=== PATIENT | female | born 1945 | race Caucasian/White ===

== ENCOUNTER 2018-04-07 20:15 | Emergency (ER) | payer MEDICARE, BC ==
[2018-04-07 21:14] LABS: CHLORIDE,CL 102 mmol/L (101-111); SODIUM,NA 136 mmol/L (135-145)
--- NOTE | 2018-04-07 22:01 | EDM.PDOC ---
ED HPI GENERAL MEDICAL PROBLEM - General Chief Complaint: Trauma Stated Complaint: fell 04/07/18 CUTS TO [id number] Time Seen by Provider: 04/07/18 21:50 Source of Information: Reports: Patient History Limitations: Reports: No Limitations - History of Present Illness INITIAL COMMENTS - FREE TEXT/NARRATIVE: fall going up steps and fell landing on forehead and knees. Arrival per family. C/o pain mid forehead and bilateral knees . Denies loss of consciousness. No neck or back pain. Ambulatory after fall. - Related Data Allergies Allergy/AdvReac Type Severity Reaction Status Date / Time beef derived (bovine) Allergy Change Verified 04/07/18 20:39 Mental Status chocolate flavor Allergy Change Verified 04/07/18 20:39 Mental Status Dairy Products Allergy Change Verified 04/07/18 20:39 Mental Status ibuprofen [From Advil] Allergy Headache Verified 04/07/18 20:39 peanut Allergy Headache Verified 04/07/18 20:39 wheat Allergy Change Verified 04/07/18 20:39 Mental Status petroleum ether Allergy Headache Uncoded 04/07/18 20:39 [id number] Allergy Headache Uncoded 04/07/18 20:39 Home Meds: Home Meds Acetaminophen 1 - 2 tab PO Q4HR PRN 12/31/15 [History] Apixaban [Eliquis] 5 mg PO BID 12/31/15 [History] Folic Acid 1 tab PO DAILY 12/31/15 [History] Furosemide 40 mg PO DAILY 12/31/15 [History] Potassium Chloride 20 meq PO BID 12/31/15 [History] atorvaSTATin [Lipitor] 20 mg PO BEDTIME 12/31/15 [History] Eyes Alive 2 tab PO DAILY 10/09/16 [History] Metoprolol Succinate [Toprol XL] 1 tab PO BID 10/09/16 [History] Past Medical History HEENT History: Reports: Cataract Cardiovascular History: Reports: Afib, Heart Valve Replacement Other Cardiovascular History: Had atrial fibrillation post valve surgery with cardioversion Gastrointestinal History: Reports: None Musculoskeletal History: Reports: None Endocrine/Metabolic History: Reports: Diabetes, Type I - Infectious Disease History Infectious Disease History: Reports: Chicken Pox, Measles, Mumps, Pertussis ( Whooping Cough), Scarlet Fever, Shingles - Past Surgical History Musculoskeletal Surgical History: Reports: Knee Replacement Social & Family History - Family History HEENT: Reports: None Cardiac: Reports: Heart Failure Other Respiratory Family Hisory: emphysema - Caffeine Use Caffeine Use: Reports: Coffee Review of Systems - Review of Systems Review Of Systems: ROS reveals no pertinent complaints other than HPI. ED EXAM, GENERAL - Physical Exam Exam: See Below Exam Limited By: No Limitations General Appearance: Alert, Anxious, Mild Distress Eye Exam: Bilateral Eye: EOMI, PERRL Ears: Normal External Exam, Normal TMs Nose: Other (5mm horizontal superficial laceration nose bridge, no active bleeding). No: Nasal Tenderness Throat/Mouth: Normal Inspection Head: Other (3cm diameter superficial abrasion mid forehead no active bleeding slight tenderness and swelling. ) Neck: Normal Inspection, Full Range of Motion. No: Limited Range of Motion, Tender Lateral, Tender Midline Respiratory/Chest: No Respiratory Distress, Lungs Clear, Normal Breath Sounds Cardiovascular: Normal Peripheral Pulses, Regular Rate, Rhythm GI/Abdominal: Soft, Non-Tender Back Exam: Normal Inspection, Full Range of Motion. No: Paraspinal Tenderness, Vertebral Tenderness Extremities: Limited Range of Motion (extension), Other (to palpation no bruising. skin intact). No: Joint Swelling Neurological: Alert, Oriented, CN II-XII Intact, Normal Cognition, No Motor/ Sensory Deficits, Other (GSC 15) Psychiatric: Normal Affect, Normal Mood Skin Exam: Warm, Wound/Incision (forehead abrasion and laceration to nasal bridge.) Course - Orders/Labs/Meds Labs: Laboratory Tests 04/07/18 04/07/18 04/07/18 Range/Units 20:38 20:38 20:38 WBC 7.8 (5.0-10.0) 10^3/uL RBC 4.18 L (4.2-5.4) 10^6/uL Hgb 12.5 D (12.0-16.0) g/dL Hct 38.4 (37.0-47.0) % MCV 91.9 (80-100) fL MCH 29.9 (27.0-34.0) pg MCHC 32.6 L (33.0-35.0) g/dL Plt Count 154 (150-450) 10^3/uL Neut % (Auto) 55.1 (42.2-75.2) % Lymph % (Auto) 32.6 (20.5-50.1) % [place] % (Auto) 9.2 H (2-8) % Eos % (Auto) 2.6 (1.0-3.0) % Baso % (Auto) 0.5 (0.0-1.0) % PT 10.4 (9.0-12.0) SEC INR 1.0 (0.9-1.2) Sodium 136 (135-145) mmol/L Potassium 4.1 (3.6-5.0) mmol/L Chloride 102 (101-111) mmol/L Carbon Dioxide 27.0 (21.0-31.0) mmol/L Anion Gap 11.1 BUN 20 H (7-18) mg/dL Creatinine 1.2 (0.6-1.3) mg/dL Est Cr Clr Drug Dosing TNP Estimated GFR (MDRD) 44 BUN/Creatinine Ratio 16.66 Glucose 119 H (74-105) mg/dL Calcium 9.3 (8.4-10.2) mg/dl Total Bilirubin 0.9 (0.2-1.0) mg/dL AST 25 (10-42) IU/L ALT 18 (10-60) IU/L Alkaline Phosphatase 61 (42-121) IU/L Total Protein 7.4 (6.7-8.2) g/dl Albumin 3.9 (3.2-5.5) g/dl Globulin 3.5 Albumin/Globulin Ratio 1.11 Meds: Medications Discontinued Medications Generic Name Dose Route Start Last Admin Trade Name Freq PRN Reason Stop Dose Admin Acetaminophen 650 mg 04/07/18 22:10 Tylenol PO 04/07/18 22:11 NOW ONE - Radiology Interpretation Free Text/Narrative:: bilateral knee xray negative. head and cervical CT negative - Re-Assessments/Exams Free Text/Narrative Re-Assessment/Exam: 04/09/18 04:14 Neuro unchanged GCS 15 at discharge. Discharge with head injury instructions. Departure - Departure Time of Disposition: 21:50 Disposition: Home, Self-Care 01 Condition: Good Clinical Impression: Fall at home Qualifiers: Encounter type: initial encounter Qualified Code(s): W19.XXXA - Unspecified fall, initial encounter Contusion of face Qualifiers: Encounter type: initial encounter Qualified Code(s): S00.83XA - Contusion of other part of head, initial encounter Forehead contusion Qualifiers: Encounter type: initial encounter Qualified Code(s): S00.83XA - Contusion of other part of head, initial encounter Contusion of nose Qualifiers: Encounter type: initial encounter Qualified Code(s): S00.33XA - Contusion of nose, initial encounter Laceration of nose without complication Qualifiers: Encounter type: initial encounter Qualified Code(s): S01.21XA - Laceration without foreign body of nose, initial encounter - Discharge Information Instructions: Contusion, [id number], Head Injury, Adult, [id number] Referrals: Phyllis Chavez MD [Primary Care Provider] - Forms: ED Department Discharge Additional Instructions: head injury instructions tylenol for discomfort every 4 hours as needed antibiotic ointment to forehead laceration twice daily ice pack to forehead check on tetnus status on Tuesday Urgent follow up if any change in condition, weakness, confusion, abnormal behavior
[2018-04-07] MEDS ORDERED: Acetaminophen 325 MG Tab PO ONE (22:10)
== END 2018-04-07 22:17 | disposition home or self-care (01) ==
LOC: DL.ED 20:15
DX: S01.21XA Laceration without foreign body of nose, initial encounter (principal); E10.9 Type 1 diabetes mellitus without complications; Z91.011 Allergy to milk products; Z91.010 Allergy to peanuts; Z91.048 Other nonmedicinal substance allergy status; Z88.6 Allergy status to analgesic agent; Z79.899 Other long term (current) drug therapy; W10.9XXA Fall (on) (from) unspecified stairs and steps, initial encounter
CPT/HCPCS: 36415; 70450; 72125; 73560-LT; 73560-RT; 80053; 85025; 85610; 99284

== ENCOUNTER 2022-09-06 12:01 | Emergency (ER) | payer MEDICARE, BC ==
[2022-09-06] MEDS: Sodium Chloride 0.9% 10 ML Syringe FLUSH PRN (12:49)
[2022-09-06] MEDS: Metoprolol Tartrate 5 MG/5 ML SDV IVPUSH ONE (12:49)
[2022-09-06 12:50] VITALS: BP 126/97; PULSE 110
[2022-09-06 13:16] LABS: ANION GAP 10.2 mEq/L (7-13)
[2022-09-06 13:17] LABS: PTT,PARTIAL THROMBOPLSTIN TIME 27.4 SEC (22.0-34.0)
[2022-09-06] MEDS: Diltiazem 120 MG Cap.CD PO ONE (14:47)
[2022-09-06] MEDS: Sodium Chloride 0.9% 1,000 ML IV ONE (15:17)
[2022-09-06] MEDS: Diltiazem 25 MG/5 ML SDV IVPUSH ONE (15:18)
== END 2022-09-06 16:05 | disposition home or self-care (01) ==
LOC: DL.ED 12:01
DX: I48.91 Unspecified atrial fibrillation (principal); I48.92 Unspecified atrial flutter; E10.9 Type 1 diabetes mellitus without complications; Z91.018 Allergy to other foods; Z91.011 Allergy to milk products; Z88.6 Allergy status to analgesic agent; Z91.010 Allergy to peanuts; Z79.899 Other long term (current) drug therapy; Z79.01 Long term (current) use of anticoagulants
CPT/HCPCS: 36415; 71045; 80053; 81001; 83735; 83880; 84484; 85025; 85610; 85730; 87086; 93005; 96361; 96374; 96375; 99285; J3490; J7030

== ENCOUNTER 2022-09-08 10:05 | Emergency (ER) | payer MEDICARE, BC ==
[2022-09-08 10:26] VITALS: BP 122/96; PULSE 93
[2022-09-08 11:13] LABS: PTT,PARTIAL THROMBOPLSTIN TIME 26.4 SEC (22.0-34.0)
[2022-09-08 11:26] LABS: ANION GAP 11.4 mEq/L (7-13); CHLORIDE,CL 105 mmol/L (98-107); SODIUM,NA 141 mmol/L (136-145)
[2022-09-08 11:27] LABS: ESTIMATED GFR 51 mL/min (>=60)
[2022-09-08 11:40] LABS: CORONAVIRUS COVID-19 NAA NEGATIVE (NEGATIVE)
== END 2022-09-08 12:55 | disposition home or self-care (01) ==
LOC: DL.ED 10:05
DX: R06.02 Shortness of breath (principal); H61.21 Impacted cerumen, right ear; I48.92 Unspecified atrial flutter; I48.91 Unspecified atrial fibrillation; I11.0 Hypertensive heart disease with heart failure; I50.30 Unspecified diastolic (congestive) heart failure; E10.9 Type 1 diabetes mellitus without complications; Z95.5 Presence of coronary angioplasty implant and graft; Z79.01 Long term (current) use of anticoagulants; Z91.011 Allergy to milk products; Z88.8 Allergy status to other drugs, medicaments and biological substances; Z91.048 Other nonmedicinal substance allergy status; Z91.010 Allergy to peanuts; Z79.899 Other long term (current) drug therapy; Z20.822 Contact with and (suspected) exposure to COVID-19
CPT/HCPCS: 0240U; 36415; 71045; 80053; 83605; 83880; 84145; 84443; 84484; 85025; 85610; 85730; 86140; 93005; 99285

== ENCOUNTER 2022-10-14 11:11 | Inpatient (IN) | payer MEDICARE, BC ==
[2022-10-14] MEDS ORDERED: Sodium Chloride 0.9% 10 ML Syringe FLUSH PRN (11:22)
[2022-10-14] MEDS ORDERED: Diltiazem 25 MG/5 ML SDV IVPUSH ONE (11:24)
[2022-10-14] MEDS ORDERED: Diltiazem 125 MG in Sodium Chloride 0.9% 100 ML IV SCH (11:30)
[2022-10-14] MEDS ORDERED: Ondansetron 4 MG/2 ML SDV IVPUSH PRN (15:15)
[2022-10-14] MEDS ORDERED: HYDROmorphone 0.5 MG/0.5 ML Syringe IVPUSH PRN (15:15)
[2022-10-14] MEDS ORDERED: Albuterol/Ipratropium 3.0-0.5 MG/3 ML Neb Soln NEB PRN (15:15)
[2022-10-14] MEDS ORDERED: Magnesium Hydroxide 400 MG/5 ML Susp 30 ML Cup PO PRN (15:15)
[2022-10-14] MEDS ORDERED: Acetaminophen/HYDROcodone 325-10 MG Tab PO PRN (15:15)
[2022-10-14] MEDS ORDERED: Acetaminophen 325 MG Tab PO PRN ×2 (15:15→15:27)
[2022-10-14] MEDS ORDERED: Polyethylene Glycol 3350 Powder 17 GM Packet PO PRN (15:15)
[2022-10-14] MEDS ORDERED: Melatonin 3 MG Tab PO PRN (15:18)
[2022-10-14] MEDS ORDERED: Ziprasidone Mesylate 20 MG Vial IM ONE (15:26)
[2022-10-14 15:44] LABS: AMPHETAMINES,URINE NEGATIVE (NEGATIVE); BARBITURATES,URINE NEGATIVE (NEGATIVE); BENZODIAZEPINE,URINE NEGATIVE (NEGATIVE); MDMA (ECSTASY), URINE NEGATIVE (NEGATIVE); METHADONE,URINE NEGATIVE (NEGATIVE); METHAMPHETAMINES,URINE NEGATIVE (NEGATIVE); OPIATES,URINE NEGATIVE (NEGATIVE); OXYCODONE,URINE NEGATIVE (NEGATIVE); PHENCYCLIDINE,URINE NEGATIVE (NEGATIVE); TCA,URINE NEGATIVE (NEGATIVE)
[2022-10-14 16:36] LABS: ANION GAP 10.2 mEq/L (7-13); CHLORIDE,CL 103 mmol/L (98-107); ESTIMATED GFR 54 mL/min (>=60); SODIUM,NA 138 mmol/L (136-145)
[2022-10-14] MEDS: atorvaSTATin 20 MG Tab PO SCH (21:19)
[2022-10-14] MEDS: Apixaban 5 MG Tab PO SCH (21:19)
[2022-10-14] MEDS: Potassium Chloride 10 MEQ Tab.ER PO SCH (21:19)
[2022-10-14] MEDS ORDERED: Metoprolol Tartrate 50 MG Tab PO ONE (21:42)
[2022-10-14] MEDS ORDERED: Metoprolol Tartrate 5 MG/5 ML SDV IVPUSH PRN (21:42)
[2022-10-14] MEDS ORDERED: Sodium Chloride 0.9% 500 ML IV SCH (22:30)
[2022-10-15 07:15] LABS: ANION GAP 12.1 mEq/L (7-13)
[2022-10-15] MEDS ORDERED: Metoprolol Succinate 50 MG Tab.ER PO SCH ×2 (09:00)
[2022-10-15] MEDS ORDERED: Diltiazem 120 MG Cap.CD PO SCH (09:00)
[2022-10-15] MEDS: Famotidine 20 MG Tab PO SCH (09:23)
[2022-10-15] MEDS: Potassium Chloride 10 MEQ Tab.ER PO SCH ×2 (09:23→21:06)
[2022-10-15] MEDS: Apixaban 5 MG Tab PO SCH ×2 (09:23→21:06)
[2022-10-15] MEDS ORDERED: Metoprolol Succinate 50 MG Tab.ER PO ONE (13:00)
[2022-10-15] MEDS: atorvaSTATin 20 MG Tab PO SCH (21:06)
[2022-10-16] MEDS ORDERED: Diltiazem 120 MG Cap.CD PO SCH (09:00)
[2022-10-16] MEDS: Potassium Chloride 10 MEQ Tab.ER PO SCH ×2 (09:23→21:20)
[2022-10-16] MEDS: Famotidine 20 MG Tab PO SCH (09:24)
[2022-10-16] MEDS: Metoprolol Succinate 50 MG Tab.ER PO SCH (09:24)
[2022-10-16] MEDS: Apixaban 5 MG Tab PO SCH ×2 (09:25→21:20)
[2022-10-16] MEDS: Diltiazem 180 MG Cap.CD PO SCH (09:25)
[2022-10-16] MEDS ORDERED: Digoxin 500 MCG/2 ML Amp IVPUSH ONE (11:00)
[2022-10-16] MEDS: Diltiazem 25 MG/5 ML SDV IVPUSH SCH ×3 (11:34→23:52)
[2022-10-16] MEDS: Digoxin 500 MCG/2 ML Amp IVPUSH SCH (17:13)
[2022-10-16] MEDS: atorvaSTATin 20 MG Tab PO SCH (21:20)
[2022-10-17] MEDS: Digoxin 500 MCG/2 ML Amp IVPUSH SCH ×2 (00:40→06:17)
[2022-10-17] MEDS: Diltiazem 25 MG/5 ML SDV IVPUSH SCH ×4 (06:10→22:14)
[2022-10-17] MEDS: Apixaban 5 MG Tab PO SCH ×2 (08:03→20:49)
[2022-10-17] MEDS: Metoprolol Succinate 50 MG Tab.ER PO SCH (08:03)
[2022-10-17] MEDS: Potassium Chloride 10 MEQ Tab.ER PO SCH ×2 (08:03→20:49)
[2022-10-17] MEDS: Diltiazem 180 MG Cap.CD PO SCH (08:03)
[2022-10-17] MEDS: Famotidine 20 MG Tab PO SCH (08:03)
[2022-10-17] MEDS: atorvaSTATin 20 MG Tab PO SCH (20:49)
[2022-10-18] MEDS: Diltiazem 25 MG/5 ML SDV IVPUSH SCH ×2 (04:06→10:47)
[2022-10-18] MEDS ORDERED: Furosemide 20 MG Tab PO SCH (09:00)
[2022-10-18] MEDS: Potassium Chloride 10 MEQ Tab.ER PO SCH (10:27)
[2022-10-18] MEDS: Diltiazem 180 MG Cap.CD PO SCH (10:28)
[2022-10-18] MEDS: Metoprolol Succinate 50 MG Tab.ER PO SCH (10:28)
[2022-10-18] MEDS: Famotidine 20 MG Tab PO SCH (10:30)
[2022-10-18] MEDS: Apixaban 5 MG Tab PO SCH (10:30)
[2022-10-18 12:34] VITALS: BP 97/49; PULSE 69
== END 2022-10-18 13:10 | disposition home or self-care (01) | DRG 310 ==
LOC: DL.ED 11:11 → DL.MS 14:33
PROVIDERS: ADMIT Internal Medicine; ATTEND Internal Medicine
DX: I48.91 Unspecified atrial fibrillation (principal); I10 Essential (primary) hypertension; E10.8 Type 1 diabetes mellitus with unspecified complications; I08.0 Rheumatic disorders of both mitral and aortic valves; Z66 Do not resuscitate; I48.92 Unspecified atrial flutter; E66.9 Obesity, unspecified; Z96.653 Presence of artificial knee joint, bilateral; N28.9 Disorder of kidney and ureter, unspecified; R41.0 Disorientation, unspecified; E10.9 Type 1 diabetes mellitus without complications; Z20.822 Contact with and (suspected) exposure to COVID-19; Z79.899 Other long term (current) drug therapy; Z91.048 Other nonmedicinal substance allergy status; Z68.37 Body mass index [BMI] 37.0-37.9, adult; Z95.2 Presence of prosthetic heart valve; Z91.011 Allergy to milk products; Z88.6 Allergy status to analgesic agent; Z91.018 Allergy to other foods; Z86.19 Personal history of other infectious and parasitic diseases; Z79.01 Long term (current) use of anticoagulants; Z90.89 Acquired absence of other organs
CPT/HCPCS: 36415; 80305; 81001; 83735; 83880; 84443; 84484; 87086; 93005; 96365; 96376; 99285; J3490 ×3; U0002; 80053; 80162; 85025; 99222; 99232; 99238; A9270-GY; J1160; J7040

== ENCOUNTER 2023-09-19 10:56 | Inpatient (IN) | payer MEDICARE, BC ==
[2023-09-19] MEDS ORDERED: Sodium Chloride 0.9% 10 ML Syringe FLUSH PRN ×2 (11:02→12:52)
[2023-09-19] MEDS ORDERED: Diltiazem 25 MG/5 ML SDV IVPUSH ONE (11:09)
[2023-09-19] MEDS ORDERED: Diltiazem 125 MG/25 ML SDV ONE (11:14)
[2023-09-19] MEDS ORDERED: Sodium Chloride 0.9% 100 ML ONE (11:15)
[2023-09-19] MEDS ORDERED: Diltiazem 125 MG in Sodium Chloride 0.9% 100 ML IV SCH (11:15)
[2023-09-19 11:16] LABS: BASOPHILS PERCENT AUTO 0.5 % (0.0-1.0); EOSINOPHILS PERCENT AUTO 2.2 % (1.0-3.0); HEMATOCRIT 39.9 % (37.0-47.0); HEMOGLOBIN 13.2 g/dL (12.0-16.0); LYMPHOCYTES PERCENT AUTO 28.3 % (20.5-50.1); MEAN CORPUSCULAR HEMOGLOBIN 31.4 pg (27.0-34.0); MEAN CORPUSCULAR HGB CONC 33.1 g/dL (33.0-35.0); MONOCYTES PERCENT AUTO 10.1 % (2-8); NEUTROPHILS PERCENT AUTO 58.9 % (42.2-75.2); PLATELET COUNT,PLT 198 10^3/uL (150-450); WHITE BLOOD CELL COUNT,WBC 7.4 10^3/uL (5.0-10.0)
[2023-09-19 11:38] LABS: LACTIC ACID 1.5 mmol/L (0.4-2.0)
[2023-09-19 11:44] LABS: A/G RATIO 0.8; ALBUMIN 3.6 g/dL (3.4-5.0); ANION GAP 9.7 mEq/L (7-13); BUN/CREATININE RATIO 12.5 (No establ ref range); CALCIUM 9.1 mg/dL (8.5-10.1); CREATININE 0.96 mg/dL (0.55-1.02); EST CRCL DRUG DOSING (CG) 42.76 mL/min; MAGNESIUM 2.1 mg/dL (1.8-2.4); POTASSIUM,K 3.7 mmol/L (3.5-5.1); TSH ULTRASENSITIVE 1.96 uIU/mL (0.36-3.74)
[2023-09-19] MEDS ORDERED: Digoxin 500 MCG/2 ML Amp IVPUSH ONE (11:50)
[2023-09-19] MEDS ORDERED: Docusate Sodium 100 MG Cap PO PRN (12:52)
[2023-09-19] MEDS ORDERED: Ondansetron 4 MG Tab.DIS PO PRN (12:52)
[2023-09-19] MEDS ORDERED: Acetaminophen 325 MG Tab PO PRN (12:52)
[2023-09-19] MEDS ORDERED: Furosemide 40 MG/4 ML VIAL IVPUSH ONE (13:14)
[2023-09-19] MEDS: Potassium Chloride 10 MEQ Tab.ER PO SCH (14:12)
[2023-09-19] MEDS: Metoprolol Succinate 50 MG Tab.ER PO SCH (15:02)
[2023-09-19] MEDS: Diltiazem 120 MG Cap.CD PO SCH (15:03)
[2023-09-19] MEDS: Apixaban 5 MG Tab PO SCH (20:55)
[2023-09-19] MEDS ORDERED: atorvaSTATin 20 MG Tab PO SCH (21:00)
[2023-09-20 06:35] LABS: CALCIUM 8.8 mg/dL (8.5-10.1); CREATININE 1.05 mg/dL (0.55-1.02); EST CRCL DRUG DOSING (CG) 37.52 mL/min
[2023-09-20] MEDS ORDERED: Donepezil 10 MG Tab PO SCH (09:00)
[2023-09-20] MEDS ORDERED: Furosemide 40 MG Tab PO SCH (09:00)
[2023-09-20] MEDS: Potassium Chloride 10 MEQ Tab.ER PO SCH (09:08)
[2023-09-20] MEDS: Diltiazem 120 MG Cap.CD PO SCH (09:08)
[2023-09-20] MEDS: Metoprolol Succinate 50 MG Tab.ER PO SCH (09:10)
[2023-09-20] MEDS: Apixaban 5 MG Tab PO SCH (09:11)
[2023-09-20 10:22] VITALS: BP 107/65; PULSE 69
== END 2023-09-20 10:10 | disposition home or self-care (01) | DRG 310 ==
LOC: DL.ED 10:56 → UNDOADMIN 12:11 → DL.MS 12:11 → UNDOADMIN 12:52 → DL.MS 12:52
PROVIDERS: ADMIT Internal Medicine; ATTEND Internal Medicine
DX: I48.91 Unspecified atrial fibrillation (principal); E10.9 Type 1 diabetes mellitus without complications; E78.5 Hyperlipidemia, unspecified; Z95.0 Presence of cardiac pacemaker; E66.9 Obesity, unspecified; G30.9 Alzheimer's disease, unspecified; F02.A0 Dementia in other diseases classified elsewhere, mild, without behavioral disturbance, psychotic disturbance, mood disturbance, and anxiety; Z96.659 Presence of unspecified artificial knee joint; Z68.36 Body mass index [BMI] 36.0-36.9, adult; Z91.014 Allergy to mammalian meats; Z91.018 Allergy to other foods; Z91.011 Allergy to milk products; Z91.010 Allergy to peanuts; Z88.8 Allergy status to other drugs, medicaments and biological substances; Z79.01 Long term (current) use of anticoagulants; Z79.899 Other long term (current) drug therapy; Z95.2 Presence of prosthetic heart valve; Z98.890 Other specified postprocedural states; Z90.89 Acquired absence of other organs
CPT/HCPCS: 36415; 71045; 80048; 80053; 82947; 83605; 83735; 83880; 84443; 84484; 85025; 93005; 93010; 94010; 94667; 96365; 96375; 99285; 99285-25; A9270-GY; J1160; J1940; J3490

== ENCOUNTER 2024-02-07 15:30 | Emergency (ER) | payer MEDICARE, BC ==
[2024-02-07] MEDS: Lidocaine/EPINEPHrine/Tetracaine Soln 5 ML Each TOP ONE ×2 (16:21)
[2024-02-07] MEDS: Diphtheria,Pertussis(Acell),Tetanus Vaccine 0.5 ML Syringe IM ONE (16:32)
[2024-02-07 17:13] VITALS: BP 91/72; PULSE 83
== END 2024-02-07 17:12 | disposition home or self-care (01) ==
LOC: DL.ED 15:30
DX: S01.01XA Laceration without foreign body of scalp, initial encounter (principal); I48.91 Unspecified atrial fibrillation; E10.9 Type 1 diabetes mellitus without complications; Z79.01 Long term (current) use of anticoagulants; Z91.014 Allergy to mammalian meats; Z91.018 Allergy to other foods; Z91.011 Allergy to milk products; Z88.6 Allergy status to analgesic agent; Z88.8 Allergy status to other drugs, medicaments and biological substances; Z79.899 Other long term (current) drug therapy; Z23 Encounter for immunization; W01.198A Fall on same level from slipping, tripping and stumbling with subsequent striking against other object, initial encounter
CPT/HCPCS: 12001; 70450; 90471; 90715; 99283; A9270